=== PATIENT | female | born 1975 ===

== ENCOUNTER 2023-08-06 12:47 | Outpatient (REF) | payer SELFPAY ==
--- NOTE | 2023-08-06 13:49 | MHC.AU.HA3 ---
Hearing Instrument Follow-Up- Binaural Date of Visit: 08/06/23 Right Ear: Model Alexis, Color, Serial Number: Deon Zambrano L70-R Color: Ivan Ellison#[id number] Physician Non Invasive Cardiologist Repair Warranty: 09/20/2026 Physician Non Invasive Cardiologist Loss and Damage Warranty: 09/20/2026 [facility] Service Plan: Battery Size: Rechargeable Industrial Maintenance Tech/Slim Tube: 1M Earmold/Dome/CShell/SlimTip:6mm Oticon dbl gardiner Left Ear: Alexis Model, Color, Serial Number: Deon Zambrano L70-R Color: Ivan Ellison#[id number] Physician Non Invasive Cardiologist Repair Warranty: 09/20/2026 Physician Non Invasive Cardiologist Loss and Damage Warranty: 09/20/2026 [facility] Service Plan: Battery Size: Rechargeable Industrial Maintenance Tech/Slim Tube: 1M Earmold/Dome/CShell/SlimTip: 6mm Oticon dbl gardiner Follow-Up Summary: Jade states her left hearing aid hurts the top of her ear and the amplification has been giving her headaches. She finds background noises to be overwhelmingly loud and speech to be a little too soft. Changed left exercise scientist to #2, she reported improved comfort. Increased noise reduction for car, wind, democrat noise. She reported sounds in the office sounded much more comfortable, such as the computer mouse clicking and paper crinkling. Follow up scheduled for 3-4 weeks to try to increase gain for better speech understanding. Recommendations: Recommendations: An additional follow-up was scheduled to monitor progress. Diagnosis Code(s): Primary Diagnosis: H90.3 Bilateral Sensorineural Hearing Loss Signature: Provider: Anthony Mccallum, [facility]
== END 2023-08-06 12:48 | disposition home or self-care (01) ==
LOC: HO.HAP 12:47
PROVIDERS: Visit Provider Family Medicine
DX: Z13.89 Encounter for screening for other disorder (principal)

== ENCOUNTER 2023-09-07 11:30 | Outpatient (REF) | payer SELFPAY ==
--- NOTE | 2023-09-07 15:28 | MHC.AU.HA3 ---
Hearing Instrument Follow-Up- Binaural Date of Visit: 09/07/23 Right Ear: Alexis, Model, Color, Serial Number: Deon Zambrano L70-R Color: Ivan Watkins S#[id number] Job Superintendent Repair Warranty: 09/20/2026 Job Superintendent Loss and Damage Warranty: 09/20/2026 [facility] Service Plan: Battery Size: Rechargeable Pt Escort/Slim Tube: 1M Earmold/Dome/CShell/SlimTip:6mm Oticon dbl gardiner Type of Wax Guard: cerushield Dispensed By: [facility] Date of Fittin07/23/24 Left Ear: Alexis, Model, Color, Serial Number: Deon Zambrano L70-R Color: Ivan Watkins S#[id number] Job Superintendent Repair Warranty: 09/20/2026 Job Superintendent Loss and Damage Warranty: 09/20/2026 [facility] Service Plan: Battery Size: Rechargeable Pt Escort/Slim Tube: 1M Earmold/Dome/CShell/SlimTip: 6mm Oticon dbl gardiner Type of Wax Guard: cerushield Dispensed By: [facility] Date of Fittin07/23/24 Follow-Up Summary: Jade reports the left hearing aid now feels too long. Went back to #1 and heated/stretched wire. Fit looks good in office. She reports the aids were turned down too far last time-- increased gain to comfortable level. 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 She has not been able to wear the hearing aids consistently due to discomfort in her ear canals. She would not like to schedule a follow up at this time, but will call us for adjustments/service as needed. Recommendations: Recommendations: Hearing instrument follow-up or maintenance as needed. Diagnosis Code(s): Primary Diagnosis: H90.3 Bilateral Sensorineural Hearing Loss Signature: Provider: Anthony Mccallum, [facility]
== END 2023-09-07 11:31 | disposition home or self-care (01) ==
LOC: HO.HAP 11:30
PROVIDERS: Visit Provider Internal Medicine
DX: Z13.89 Encounter for screening for other disorder (principal)